=== PATIENT | male | born 1990 | race Caucasian/White ===

== ENCOUNTER 2018-12-30 07:40 | Emergency (ER) | payer OTHER ==
[2018-12-30] MEDS ORDERED: Sodium Chloride 0.9% 10 ML Syringe FLUSH PRN (08:36)
[2018-12-30] MEDS ORDERED: Clindamycin Phosphate in D5W 600 MG in Premix Bag 50 BAG IV ONE ×2 (08:36)
[2018-12-30] MEDS ORDERED: Sodium Chloride 0.9% 1,000 ML IV ONE (08:36)
[2018-12-30] MEDS ORDERED: Sodium Chloride 0.9% 2.5 ML Syringe FLUSH PRN (08:36)
--- NOTE | 2018-12-30 08:37 | EDM.PDOC ---
ED HPI GENERAL MEDICAL PROBLEM - General Chief Complaint: Skin Complaint Stated Complaint: BUMP ON HEAD, SHORTNESS OF BREATH, WEAK Time Seen by Provider: 12/30/18 08:37 Source of Information: Reports: Patient History Limitations: Reports: No Limitations - History of Present Illness INITIAL COMMENTS - FREE TEXT/NARRATIVE: History of present illness: []Patient noticed a bump on his head 2 days ago and has since spread. He feels ill states he feels short of breath and weak. He had a similar episode several years ago where he was hospitalized and he went into full multisystem organ failure. 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 Review of systems: As per history of present illness and below otherwise all systems reviewed and negative. Past medical history: As per history of present illness and as reviewed below otherwise noncontributory. Surgical history: As per history of present illness and as reviewed below otherwise noncontributory. Social history: No reported history of drug or alcohol abuse. Family history: As per history of present illness and as reviewed below otherwise noncontributory. Physical exam: General: Well developed, well nourished in NAD HEENT: 6 x 6 cm fluctuant erythematous tender lesion in the middle of his forehead, normocephalic, pupils reactive, negative for conjunctival pallor or scleral icterus, mucous membranes moist, throat clear, neck supple, nontender, trachea midline. Lungs: Clear to auscultation, breath sounds equal bilaterally, chest nontender. Heart: S1S2, regular, negative for clicks, rubs, or JVD. Abdomen: NABS, Soft, nondistended, nontender. Negative for masses or hepatosplenomegaly. Negative for costovertebral tenderness. Pelvis: Stable nontender. Genitourinary: Deferred. Rectal: Deferred. Extremities: Atraumatic, negative for cords or calf pain. Neurovascular unremarkable. Neuro: Awake, alert, oriented. Cranial nerves II through XII unremarkable. Cerebellum unremarkable. Motor and sensory unremarkable throughout. Exam nonfocal. Skin:warm and dry Diagnostics: CBC, chemistry, blood cultures, lactic acid, chest x-ray Therapeutics: IV hydration, clindamycins 600 g IV, IV Toradol ED Course: Improved Impression: Facial cellulitis, bilateral pleural effusions Prescriptions: Clindamycin, Bactrim Plan: Take meds as directed, follow up with your primary care physician, return to ER if symptoms worsen or change. Definitive disposition and diagnosis as appropriate pending reevaluation and review of above. Head Pain Score (Numeric/FACES): 8 - Related Data Allergies Allergy/AdvReac Type Severity Reaction Status Date / Time No Known Allergies Allergy Verified 12/30/18 07:53 Home Meds: Home Meds Clindamycin HCl 300 mg PO TID #30 capsule 12/30/18 [Rx] Sulfamethoxazole/Trimethoprim [Bactrim Ds Tablet] 1 each PO BID #20 tablet 12/30 [Rx] Past Medical History - Past Health History Medical/Surgical History: Denies Medical/Surgical History - Infectious Disease History Infectious Disease History: Reports: MRSA - Past Surgical History GI Surgical History: Reports: Appendectomy Social & Family History - Family History Family Medical History: Noncontributory - Tobacco Use Smoking Status *Q: Current Every Day Smoker Years of Tobacco use: 9 Packs/Tins Daily: 1 - Recreational Drug Use Recreational Drug Use: No ED ROS GENERAL - Review of Systems Review Of Systems: See Below ED EXAM, SKIN/RASH Exam: See Below Course - Vital Signs Last Recorded V/S: Last Vital Signs Temp 97.8 F 12/30/18 10:00 Pulse 61 12/30/18 10:00 Resp 17 12/30/18 10:00 BP 118/64 12/30/18 10:00 Pulse Ox 98 12/30/18 10:00 - Orders/Labs/Meds Orders: Active Orders 24 hr Category Date Time Status CULTURE BLOOD [BC] Stat Lab 12/30/18 08:48 Received CULTURE BLOOD [BC] Stat Lab 12/30/18 08:50 Received Blood Culture x2 Reflex Set [OM.PC] Stat Oth 12/30/18 08:35 Ordered Saline Lock Insert [OM.PC] Stat Oth 12/30/18 08:35 Ordered Labs: Laboratory Tests 12/30/18 12/30/18 12/30/18 Range/Units 08:48 08:48 08:48 WBC 10.81 (4.0-11.0) K/uL RBC 4.48 L (4.50-5.90) M/uL Hgb 14.4 (13.0-17.0) g/dL Hct 41.6 (38.0-50.0) % MCV 92.9 (80.0-98.0) fL MCH 32.1 H (27.0-32.0) pg MCHC 34.6 (31.0-37.0) g/dL RDW Std Deviation 40.8 (28.0-62.0) fl RDW Coeff of Danilo 12 (11.0-15.0) % Plt Count 287 (150-400) K/uL MPV 9.60 (7.40-12.00) fL Neut % (Auto) 55.0 (48.0-80.0) % Lymph % (Auto) 28.2 (16.0-40.0) % Mcminn % (Auto) 13.4 (0.0-15.0) % Eos % (Auto) 3.0 (0.0-7.0) % Baso % (Auto) 0.4 (0.0-1.5) % Neut # (Auto) 6.0 H (1.4-5.7) K/uL Lymph # (Auto) 3.1 H (0.6-2.4) K/uL Mcminn # (Auto) 1.5 H (0.0-0.8) K/uL Eos # (Auto) 0.3 (0.0-0.7) K/uL Baso # (Auto) 0.0 (0.0-0.1) K/uL Lactate 0.6 (0.20-2.00) mmol/L Sodium 141 (136-148) mmol/L Potassium 3.8 (3.5-5.1) mmol/L Chloride 104 (98-107) mmol/L Carbon Dioxide 24.5 (21.0-32.0) mmol/L BUN 13 (7.0-18.0) mg/dL Creatinine 0.9 (0.8-1.3) mg/dL Est Cr Clr Drug Dosing 122.20 mL/min Estimated GFR (MDRD) > 60.0 ml/min Glucose 93 (74-106) mg/dL Calcium 9.2 (8.5-10.1) mg/dL Total Bilirubin 0.2 (0.2-1.0) mg/dL AST 18 (15-37) IU/L ALT 22 (14-63) IU/L Alkaline Phosphatase 103 (46-116) U/L Total Protein 7.7 (6.4-8.2) g/dL Albumin 4.4 (3.4-5.0) g/dL Globulin 3.3 (2.6-4.0) g/dL Albumin/Globulin Ratio 1.3 (0.9-1.6) Meds: Medications Discontinued Medications Generic Name Dose Route Start Last Admin Trade Name Freq PRN Reason Stop Dose Admin Clindamycin Phosphate 600 mg/ 50 mls @ 100 mls/hr 12/30/18 08:36 12/30/18 09: 18 Premix IV 12/30/18 09:05 100 mls/hr ONETIME ONE Administration Sodium Chloride 1,000 mls @ 999 mls/hr 12/30/18 08:36 12/30/18 08:52 Normal Saline IV 12/30/18 09:36 999 mls/hr .Bolus ONE Administration Ketorolac Tromethamine 30 mg 12/30/18 08:53 12/30/18 09:02 Toradol IVPUSH 12/30/18 08:54 30 mg ONETIME ONE Administration Lidocaine/Epinephrine 20 ml 12/30/18 08:53 12/30/18 09:40 Xylocaine 1% With Epinephrine 1:100,000 INJECT 12/30/18 08:54 20 ml ONETIME ONE Administration Sodium Chloride 10 ml 12/30/18 08:36 12/30/18 08:52 Saline Flush FLUSH 10 ml ASDIRECTED PRN Administration Keep Vein Open Sodium Chloride 2.5 ml 12/30/18 08:36 12/30/18 08:52 Saline Flush FLUSH 2.5 ml ASDIRECTED PRN Administration Keep Vein Open Departure - Departure Time of Disposition: 10:00 Disposition: Home, Self-Care 01 Condition: Good Clinical Impression: Facial cellulitis, Bilateral pleural effusion - Discharge Information *PRESCRIPTION DRUG MONITORING PROGRAM REVIEWED*: No *COPY OF PRESCRIPTION DRUG MONITORING REPORT IN PATIENT KATE: No Prescriptions: Clindamycin HCl 300 mg PO TID #30 capsule Sulfamethoxazole/Trimethoprim [Bactrim Ds Tablet] 1 each PO BID #20 tablet Instructions: Cellulitis, Adult, [id number] Referrals: PCP,None [Primary Care Provider] - Forms: ED Department Discharge Additional Instructions: The following information is given to patients seen in the emergency department who are being discharged to home. This information is to outline your options for follow-up care. We provide all patients seen in our emergency department with a follow-up referral. The need for follow-up, as well as the timing and circumstances, are variable depending upon the specifics of your emergency department visit. If you don't have a primary care physician on staff, we will provide you with a referral. We always advise you to contact your personal physician following an emergency department visit to inform them of the circumstance of the visit and for follow-up with them and/or the need for any referrals to a consulting specialist. The emergency department will also refer you to a specialist when appropriate. This referral assures that you have the opportunity for follow-up care with a specialist. All of these measure are taken in an effort to provide you with optimal care, which includes your follow-up. Under all circumstances we always encourage you to contact your private physician who remains a resource for coordinating your care. When calling for follow-up care, please make the office aware that this follow-up is from your recent emergency room visit. If for any reason you are refused follow-up, please contact the [facility] Emergency Department at and asked to speak to the emergency department charge nurse. [facility] [address] [place] [address] - My Orders Last 24 Hours: My Active Orders 12/30/18 08:35 Blood Culture x2 Reflex Set [OM.PC] Stat Saline Lock Insert [OM.PC] Stat 12/30/18 08:48 CULTURE BLOOD [BC] Stat 12/30/18 08:50 CULTURE BLOOD [BC] Stat - Assessment/Plan Last 24 Hours: My Active Orders 12/30/18 08:35 Blood Culture x2 Reflex Set [OM.PC] Stat Saline Lock Insert [OM.PC] Stat 12/30/18 08:48 CULTURE BLOOD [BC] Stat 12/30/18 08:50 CULTURE BLOOD [BC] Stat
[2018-12-30] MEDS ORDERED: Ketorolac 30 MG/ML SDV IVPUSH ONE (08:53)
[2018-12-30] MEDS ORDERED: Lidocaine 1% with EPINEPHrine 1:100,000 20 ML MDV INJECT ONE (08:53)
[2018-12-30 09:21] LABS: BLOOD UREA NITROGEN,BUN 13 mg/dL (7.0-18.0); CARBON DIOXIDE,CO2 24.5 mmol/L (21.0-32.0); CHLORIDE,CL 104 mmol/L (98-107); GLUCOSE RANDOM 93 mg/dL (74-106); POTASSIUM,K 3.8 mmol/L (3.5-5.1); SODIUM,NA 141 mmol/L (136-148)
--- NOTE | 2018-12-30 09:29 | CR ---
INDICATION: Chest pain. FINDINGS: A single portable chest x-ray shows a normal cardiac silhouette. The lungs show very small bilateral pleural effusions. No focal pulmonary opacities. No pneumothorax. IMPRESSION: 1. Very small bilateral pleural effusions. 2. No focal pulmonary opacities. Dictated by Berto Ruiz MD @ 12/30/2018 9:29:07 AM Dictated by: Berto Ruiz MD @ 12/30/2018 09:29:19 (Electronically Signed)
== END 2018-12-30 10:04 | disposition home or self-care (01) ==
LOC: MW.ED 07:40
DX: J90 Pleural effusion, not elsewhere classified (principal); L03.211 Cellulitis of face; Z86.14 Personal history of Methicillin resistant Staphylococcus aureus infection; Z90.49 Acquired absence of other specified parts of digestive tract
CPT/HCPCS: 36415; 71045; 80053; 83605; 85025; 87040; 96365; 96375; 99283; J1885; J3490; J7040

== ENCOUNTER 2019-03-28 01:10 | Emergency (ER) | payer SELFPAY ==
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
== END 2019-03-28 01:32 ==
LOC: MW.ED 01:10
DX: Z02.89 Encounter for other administrative examinations (principal); Z04.1 Encounter for examination and observation following transport accident
CPT/HCPCS: 82962; 99282; 99283

== ENCOUNTER 2021-03-02 20:41 | Emergency (ER) | payer SELFPAY ==
[2021-03-02] MEDS ORDERED: Ketorolac 15 MG/ML SDV IVPUSH ONE (23:11)
[2021-03-02] MEDS ORDERED: Sulfamethoxazole/Trimethoprim 800-160 MG Tab PO ONE (23:12)
--- NOTE | 2021-03-02 23:15 | EDM.PDOC ---
ED HPI GENERAL MEDICAL PROBLEM - General Chief Complaint: Skin Complaint Stated Complaint: BUG BITE ON RIGHT KNEE Time Seen by Provider: 03/02/21 22:54 Source of Information: Reports: Patient History Limitations: Reports: No Limitations - History of Present Illness INITIAL COMMENTS - FREE TEXT/NARRATIVE: Patient is a 30-year-old male who presents today for right knee pain and s welling. He states that he believes on the [employer] was working at in the anterior portion of his knee has been red and swollen and redness been spreading. Denies any fever chills nausea vomiting pain is mostly in the knee has trouble bending the knee due to the pain is achy feeling. The knee is also warm as well. Is not had any drainage from the knee. Right Knee Pain Score (Numeric/FACES): 9 - Related Data Allergies Allergy/AdvReac Type Severity Reaction Status Date / Time No Known Allergies Allergy Verified 03/02/21 22:32 Home Meds: Home Meds Sulfamethoxazole/Trimethoprim [Bactrim Ds Tablet] 1 each PO BID 5 Days #10 tablet 03/03/21 [Rx] cephALEXin [Keflex] 500 mg PO Q6HR 5 Days #20 cap 03/03/21 [Rx] Past Medical History - Past Health History Medical/Surgical History: Denies Medical/Surgical History - Infectious Disease History Infectious Disease History: Reports: MRSA - Past Surgical History Cardiovascular Surgical History: Reports: Other (See Below) Other Cardiovascular Surgeries/Procedures: PICC placement Respiratory Surgical History: Reports: Other (See Below) Other Respiratory Surgeries/Procedures: chest tube thoracostomy GI Surgical History: Reports: Appendectomy Social & Family History - Family History Family Medical History: No Pertinent Family History - Tobacco Use Tobacco Use Status *Q: Current Every Day Tobacco User Years of Tobacco use: 15 Packs/Tins Daily: 1 - Caffeine Use Caffeine Use: Reports: Energy Drinks - Recreational Drug Use Recreational Drug Use: Yes Recreational Drug Type: Reports: Marijuana/Hashish, Methamphetamine ED ROS GENERAL - Review of Systems Review Of Systems: See Below Constitutional: Reports: No Symptoms HEENT: Reports: No Symptoms Respiratory: Reports: No Symptoms Cardiovascular: Reports: No Symptoms Endocrine: Reports: No Symptoms GI/Abdominal: Reports: No Symptoms : Reports: No Symptoms Musculoskeletal: Reports: Other (knee pain and redness) Skin: Reports: No Symptoms Neurological: Reports: No Symptoms Psychiatric: Reports: No Symptoms Hematologic/Lymphatic: Reports: No Symptoms Immunologic: Reports: No Symptoms ED EXAM, SKIN/RASH Exam: See Below Exam Limited By: No Limitations General Appearance: Alert, WD/WN, No Apparent Distress Neck: Normal Inspection Respiratory/Chest: No Respiratory Distress, Lungs Clear, Normal Breath Sounds Cardiovascular: Normal Peripheral Pulses, Regular Rate, Rhythm GI/Abdominal: Normal Bowel Sounds, Soft, Non-Tender Extremities: No: Normal Inspection (Redness with some fluctuance) Neurological: Alert, Oriented ED SKIN PROCEDURES - I&D Site: right knee Skin Prep: Isopropyl Alcohol (Alcohol) Local Anesthesia: Lidocaine: 1% Plain Local Anesthetic Volume: 2cc Area Incised With: 11 Blade Drainage: Purulent, Bloody Probed to Break Up Loculations: Yes Packed With: None Sterile Dressinx4(s) Complications: No Course - Vital Signs Last Recorded V/S: Last Vital Signs Temp 98.3 F 03/02/21 22:32 Pulse 96 03/02/21 22:32 Resp 18 03/02/21 22:32 BP 140/79 03/02/21 22:32 Pulse Ox 98 03/02/21 22:32 - Orders/Labs/Meds Orders: Active Orders 24 hr Category Date Time Status Clindamycin Phosphate in D5W [Cleocin in D5W 600 MG/50 Med 03/03/21 00:13 Active ML] 600 mg Premix Bag 1 bag IV ONETIME Medication Orders Clindamycin Phosphate 600 mg/ (Premix) 50 mls @ 100 mls/hr IV ONETIME ONE Stop: 03/03/21 00:42 Last Admin: 03/03/21 00:21 Dose: 100 mls/hr Documented by: CORINNA Labs: Laboratory Tests 03/02/21 03/02/21 03/02/21 Range/Units 23:29 23:29 23:29 WBC 15.86 H (4.0-11.0) K/uL RBC 4.26 L (4.50-5.90) M/uL Hgb 13.9 (13.0-17.0) g/dL Hct 39.8 (38.0-50.0) % MCV 93.4 (80.0-98.0) fL MCH 32.6 H (27.0-32.0) pg MCHC 34.9 (31.0-37.0) g/dL RDW Std Deviation 43.1 (28.0-62.0) fl RDW Coeff of Danilo 13 (11.0-15.0) % Plt Count 327 (150-400) K/uL MPV 9.70 (7.40-12.00) fL Neut % (Auto) 75.5 (48.0-80.0) % Lymph % (Auto) 11.3 L (16.0-40.0) % [place] % (Auto) 11.0 (0.0-15.0) % Eos % (Auto) 2.0 (0.0-7.0) % Baso % (Auto) 0.2 (0.0-1.5) % Neut # (Auto) 12.0 H (1.4-5.7) K/uL Lymph # (Auto) 1.8 (0.6-2.4) K/uL [place] # (Auto) 1.7 H (0.0-0.8) K/uL Eos # (Auto) 0.3 (0.0-0.7) K/uL Baso # (Auto) 0.0 (0.0-0.1) K/uL Nucleated RBC % 0.0 /100WBC Nucleated RBCs # 0 K/uL Sodium 138 (136-148) mmol/L Potassium 3.9 (3.5-5.1) mmol/L Chloride 101 (98-107) mmol/L Carbon Dioxide 26.0 (21.0-32.0) mmol/L BUN 11 (7.0-18.0) mg/dL Creatinine 0.9 (0.8-1.3) mg/dL Est Cr Clr Drug Dosing 120.02 mL/min Estimated GFR (MDRD) > 60.0 ml/min Glucose 117 H (74-106) mg/dL Lactic Acid 1.5 (0.4-2.0) mmol/L Calcium 8.5 (8.5-10.1) mg/dL Total Bilirubin 0.2 (0.2-1.0) mg/dL AST 19 (15-37) IU/L ALT 20 (14-63) IU/L Alkaline Phosphatase 94 (46-116) U/L Creatine Kinase 83 (26-308) U/L Total Protein 6.8 (6.4-8.2) g/dL Albumin 3.4 (3.4-5.0) g/dL Globulin 3.4 (2.6-4.0) g/dL Albumin/Globulin Ratio 1.0 (0.9-1.6) Meds: Medications Generic Name Dose Route Start Last Admin Trade Name Al PRN Reason Stop Dose Admin Clindamycin Phosphate 600 mg/ 50 mls @ 100 mls/hr 03/03/21 00:13 03/03/21 00:21 Premix IV 03/03/21 00:42 100 mls/hr ONETIME ONE Administration Discontinued Medications Generic Name Dose Route Start Last Admin Trade Name Al PRN Reason Stop Dose Admin Clindamycin Phosphate 600 mg/ 54 mls @ 100 mls/hr 03/02/21 23:12 03/03/21 00:13 Sodium Chloride IV 03/02/21 23:44 Not Given ONETIME ONE Clindamycin Phosphate Confirm 03/03/21 00:12 03/03/21 00:17 Cleocin In D5w 600 Mg/50 Ml Administered 03/03/21 00:13 Not Given Dose 50 mls @ as directed .ROUTE .STK-MED ONE Ketorolac Tromethamine 15 mg 03/02/21 23:11 03/02/21 23:25 Ketorolac 15 Mg/Ml Sdv IVPUSH 03/02/21 23:12 15 mg ONETIME ONE Administration Lidocaine HCl 10 ml 03/02/21 23:40 Lidocaine 1% 10 Ml Mdv INJECT 03/02/21 23:41 ONETIME ONE Lidocaine HCl Confirm 03/03/21 00:11 03/03/21 00:13 Lidocaine 1% 5 Ml Sdv Administered 03/03/21 00:12 Not Given Dose 10 ml .ROUTE .STK-MED ONE Trimethoprim/Sulfamethoxazole 1 tab 03/02/21 23:12 03/02/21 23:25 Sulfamethoxazole/Trimethoprim 800-160 Mg Tab PO 03/02/21 23:13 1 tab ONETIME ONE Administration - Re-Assessments/Exams Free Text/Narrative Re-Assessment/Exam: 03/03/21 00:21 He did a small I&D to the right knee got a small amount of pus out. Patient placed antibiotics and will have a line drawn around redness and if it spreads patient give instructions to return for IV antibiotics. Departure - Departure Time of Disposition: 00:21 Disposition: Home, Self-Care 01 Condition: Good Clinical Impression: Cellulitis, Abscess of knee, right - Discharge Information *PRESCRIPTION DRUG MONITORING PROGRAM REVIEWED*: Not Applicable *COPY OF PRESCRIPTION DRUG MONITORING REPORT IN PATIENT KATE: Not Applicable Prescriptions: Sulfamethoxazole/Trimethoprim [Bactrim Ds Tablet] 1 each PO BID 5 Days #10 tablet cephALEXin [Keflex] 500 mg PO Q6HR 5 Days #20 cap Instructions: Cellulitis, Adult Referrals: PCP,None [Primary Care Provider] - Forms: ED Department Discharge Additional Instructions: The following information is given to patients seen in the emergency department who are being discharged to home. This information is to outline your options for follow-up care. We provide all patients seen in our emergency department with a follow-up referral. The need for follow-up, as well as the timing and circumstances, are variable depending upon the specifics of your emergency department visit. If you don't have a primary care physician on staff, we will provide you with a referral. We always advise you to contact your personal physician following an emergency department visit to inform them of the circumstance of the visit and for follow-up with them and/or the need for any referrals to a consulting specialist. The emergency department will also refer you to a specialist when appropriate. This referral assures that you have the opportunity for follow-up care with a specialist. All of these measure are taken in an effort to provide you with optimal care, which includes your follow-up. Under all circumstances we always encourage you to contact your private physician who remains a resource for coordinating your care. When calling for follow-up care, please make the office aware that this follow-up is from your recent emergency room visit. If for any reason you are refused follow-up, please contact the [facility] Emergency Department at and asked to speak to the emergency department charge nurse. Please follow up with your primary care physician. If you do not have a primary care physician, see below: [facility] [address] [place] [id number] [facility] [address] [place] [id number] You were seen today for redness your knee looks to be a cellulitis he also had a small abscess as well that we drained. We placed you antibiotics that she would take for the next 7 days. We jose roberto a line around your knee if the redness starts to spread please come to ED immediately otherwise continue to take antibiotic follow-up with primary care physician. Sepsis Event Note (ED) - Focused Exam Vital Signs: Vital Signs Temp Pulse Resp BP Pulse Ox 03/02/21 22:32 98.3 F 96 18 140/79 98 - My Orders Last 24 Hours: My Active Orders 03/03/21 00:13 Clindamycin Phosphate in D5W [Cleocin in D5W 600 MG/50 ML] 600 mg Premix Bag 1 bag IV ONETIME - Assessment/Plan Last 24 Hours: My Active Orders 03/03/21 00:13 Clindamycin Phosphate in D5W [Cleocin in D5W 600 MG/50 ML] 600 mg Premix Bag 1 bag IV ONETIME Plan: Patient is a 30-year-old male presents today for redness and swelling of his right knee. Looks to be a cellulitis with some possible abscess above as well. Will start antibiotics obtain labs and likely I&D.
[2021-03-02] MEDS ORDERED: Lidocaine 1% 10 ML MDV INJECT ONE (23:40)
[2021-03-02 23:57] LABS: BLOOD UREA NITROGEN,BUN 11 mg/dL (7.0-18.0); CHLORIDE,CL 101 mmol/L (98-107); GLUCOSE RANDOM 117 mg/dL (74-106); POTASSIUM,K 3.9 mmol/L (3.5-5.1); SODIUM,NA 138 mmol/L (136-148)
[2021-03-03] MEDS ORDERED: Clindamycin Phosphate in D5W 50 ML ONE (00:12)
[2021-03-03] MEDS ORDERED: Clindamycin Phosphate in D5W 600 MG in Premix Bag 1 BAG IV ONE ×2 (00:13)
--- NOTE | 2021-03-03 00:23 | CR ---
INDICATION: Right knee cellulitis. COMPARISON: None. FINDINGS/IMPRESSION: Right knee, three views. Marked soft tissue swelling anterior to the right knee. This could represent cellulitis. No soft tissue gas. No fracture, osseous malalignment, or bony erosion identified. No evidence of joint effusion in the suprapatellar bursa. Dictated by Dale Payne MD @ 03/03/2021 12:20:50 AM Dictated by: Dale Payne MD @ 03/03/2021 00:21:31 (Electronically Signed)
== END 2021-03-03 00:56 | disposition home or self-care (01) ==
LOC: MW.ED 20:41
DX: L02.415 Cutaneous abscess of right lower limb (principal); L03.115 Cellulitis of right lower limb; Z72.0 Tobacco use
CPT/HCPCS: 10060; 36415; 73562; 80053; 82550; 83605; 85025; 96365; 96375; 99283; A9270; J1885; J3490